=== PATIENT | female | born 1950 | race Caucasian/White ===

== ENCOUNTER 2016-06-12 17:43 | Emergency (ER) | payer MEDICARE ==
[2016-06-12 18:32] VITALS: TEMP 98
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
--- NOTE | 2016-06-12 19:41 | XR ---
EXAMINATION TYPE: XR ankle complete LT DATE OF EXAM: 06/12/2016 7:07 PM COMPARISON: NONE HISTORY: Pain after fall TECHNIQUE: 3 views FINDINGS: The bones and joints and soft tissues are negative for acute findings. IMPRESSION: Negative for fracture or malalignment.
--- NOTE | 2016-06-12 19:42 | XR ---
EXAMINATION TYPE: XR foot complete LT DATE OF EXAM: 06/12/2016 7:07 PM COMPARISON: NONE HISTORY: Pain after fall TECHNIQUE: 3 views FINDINGS: The bones and joints and soft tissues are unremarkable for acute findings. IMPRESSION: Negative for fracture or malalignment.
[2016-06-12 20:35] VITALS: BP 206/88; PULSE 85; RESP 16
== END 2016-06-12 20:34 | disposition home or self-care (01) ==
LOC: EC 17:43
DX: S93.402A Sprain of unspecified ligament of left ankle, initial encounter (principal); S93.602A Unspecified sprain of left foot, initial encounter; Z79.84 Long term (current) use of oral hypoglycemic drugs; Z79.899 Other long term (current) drug therapy; Z88.1 Allergy status to other antibiotic agents; Z88.2 Allergy status to sulfonamides; Z91.048 Other nonmedicinal substance allergy status; W05.1XXA Fall from non-moving nonmotorized scooter, initial encounter; Y92.89 Other specified places as the place of occurrence of the external cause
CPT/HCPCS: 99283